=== PATIENT | female | born 1955 | race Caucasian/White ===

== ENCOUNTER 2017-07-06 14:38 | Day surgery (SDC) | payer OTHER ==
[~2017-07-06] VITALS: Ht 165.1 cm; Wt 67.1 kg
[~2017-07-06 14:38] MED LIST: Celexa10 MG PO; DOCCAL240; ERGO400; EZET10 PO; GAVILAX17 GM; Multiple Vitam1 EAC1; NAPR250 PO; PSYL5.85P; Premarin0.45 MG PO; RANI150 PO; Super Calcium600 MG PO; TRIPLE OMEGA C400 MG
== END 2017-07-06 16:00 | disposition home or self-care (01) ==
LOC: ORSCSDS 14:38
PROVIDERS: Surgery
PROC: 0DBM8ZX Excision of Descending Colon, Via Natural or Artificial Opening Endoscopic, Diagnostic (ICD-10-PCS; principal; 2017-07-06 15:45)
DX: R19.4 Change in bowel habit (principal); D12.4 Benign neoplasm of descending colon; K64.8 Other hemorrhoids; K92.1 Melena; K21.9 Gastro-esophageal reflux disease without esophagitis; E78.00 Pure hypercholesterolemia, unspecified; F41.8 Other specified anxiety disorders; Z87.891 Personal history of nicotine dependence; Z79.899 Other long term (current) drug therapy
CPT/HCPCS: 88305

== ENCOUNTER → 2020-08-28 | Outpatient (CLI) | payer OTHER | END | disposition home or self-care (01) | LOC: LAB SHORT 08:05 → LAB 08:05 | DX: E78.5 Hyperlipidemia, unspecified (principal); R10.84 Generalized abdominal pain | CPT/HCPCS: 87338 ==

== ENCOUNTER 2022-11-25 09:04 | Day surgery (SDC) | payer MEDICARE, OTHER ==
[~2022-11-25] VITALS: Ht 162.6 cm; Wt 65.8 kg
[2022-11-25] MEDS ORDERED: C COMPLEX1000 M1 (09:27)
[2022-11-25] MEDS ORDERED: FAMO10 (09:30)
[2022-11-25] MEDS ORDERED: TURMERIC500 M2 (09:30)
[2022-11-25] MEDS ORDERED: CLIMARA1 EACH (09:30)
[2022-11-25] MEDS ORDERED: PRESERVISION A1 EAC2 (09:31)
[2022-11-25] MEDS ORDERED: ZOLP10 (09:31)
[2022-11-25] MEDS ORDERED: ELEMENTAL ZINC30 MG (09:31)
[2022-11-25 11:53] VITALS: BP 98/54
== END 2022-11-25 11:38 | disposition home or self-care (01) ==
LOC: ORSCSDS 09:04
PROVIDERS: Surgery
PROC: 0DJD8ZZ Inspection of Lower Intestinal Tract, Via Natural or Artificial Opening Endoscopic (ICD-10-PCS; principal; 2022-11-25 10:30)
DX: Z12.11 Encounter for screening for malignant neoplasm of colon (principal); Z86.010 Personal history of colon polyps; Z80.0 Family history of malignant neoplasm of digestive organs; F41.9 Anxiety disorder, unspecified; F32.A Depression, unspecified; K21.9 Gastro-esophageal reflux disease without esophagitis; E78.00 Pure hypercholesterolemia, unspecified; Z87.891 Personal history of nicotine dependence; Z79.899 Other long term (current) drug therapy
CPT/HCPCS: J2704; J7120